=== PATIENT | female | born 1990 | race Caucasian/White ===

== ENCOUNTER 2020-05-30 01:14 | Outpatient (CLI) | payer BC, SELFPAY ==
[2020-05-30 16:58] LABS: HCT 39.6 % (36.0-46.0); HGB 12.9 g/dL (11.2-15.7); MCH 28.9 pg (27.0-33.0); MCHC 32.6 % (32.0-36.0); MCV 88.6 fL (80-95); MPV 9.3 fL (8.0-11.0); Platelet Count 264 10^3/uL (130-400); RBC 4.47 10^6/uL (3.93-5.22); RDW 13.2 % (11.7-14.6); RDW-SD 42.6 fL; WBC 11.13 10^3/uL (4.4-10.8)
== END 2020-05-30 01:34 ==
PROVIDERS: PCP Student in an Organized Health Care Education/Training Program; Visit Provider Student in an Organized Health Care Education/Training Program
DX: D64.9 Anemia, unspecified (principal); R00.0 Tachycardia, unspecified
CPT/HCPCS: 36415; 85027

== ENCOUNTER 2020-12-18 04:18 | Outpatient (CLI) | payer BC, SELFPAY ==
[2020-12-18 20:52] LABS: Anion Gap 9.3 mmol/L (3-11); BUN 11 mg/dL (7-18); CO2 25.7 mmol/L (21.0-32.0); CREATININE 0.9 mg/dL (0.55-1.02); Calcium 9.6 mg/dL (8.5-10.1); Chloride 106 mmol/L (98-107); Glucose 89 mg/dL (74-106); Sodium 141 mmol/L (136-145); TSH (W/Ref FT4) 1.18 uIU/mL (0.36-3.74)
[2020-12-20 12:58] LABS: ANA Interpretation Positive (Negative)
[2020-12-20 17:04] LABS: Whey, IgE <0.35 kU/L
[2020-12-21 11:57] LABS: dsDNA Ab, IgG <12.3 IU/mL (<30.0)
== END 2020-12-18 04:19 | disposition home or self-care (01) ==
LOC: LBO 04:18
PROVIDERS: PCP Student in an Organized Health Care Education/Training Program; Visit Provider Student in an Organized Health Care Education/Training Program
DX: D64.9 Anemia, unspecified (principal); R53.83 Other fatigue; M25.59 Pain in other specified joint; R21 Rash and other nonspecific skin eruption; M35.9 Systemic involvement of connective tissue, unspecified; R63.5 Abnormal weight gain; E46 Unspecified protein-calorie malnutrition; N28.9 Disorder of kidney and ureter, unspecified; Z13.1 Encounter for screening for diabetes mellitus; Z91.018 Allergy to other foods
CPT/HCPCS: 36415; 80048; 84443; 86003; 86038; 86225

== ENCOUNTER 2021-09-14 11:32 | Outpatient (CLI) | payer BC, SELFPAY ==
--- NOTE | 2021-09-14 11:30 | RT.EKG_ITS ---
APPROVED REPORT Exam: Resting ECG Reason for Exam: pre-op examination Patient Location: O HR:65 bpm ECG Measurements Heart Rate 65 AXIS ME 141 P 20 QRSd 92 QRS 15 QT 407 T 2 QTc 423 Conclusion Sinus rhythm...normal P axis, V-rate 60- 99 Normal Electrocardiogram
== END 2021-09-14 11:33 | disposition home or self-care (01) ==
LOC: DI.KIM 11:33
PROVIDERS: PCP Student in an Organized Health Care Education/Training Program; Visit Provider Student in an Organized Health Care Education/Training Program
DX: Z01.818 Encounter for other preprocedural examination (principal)
CPT/HCPCS: 93010

== ENCOUNTER 2021-09-14 21:39 | Outpatient (REF) | payer BC, SELFPAY ==
[2021-09-14 20:50] LABS: HCT 42.9 % (36.0-46.0); HGB 13.9 g/dL (11.2-15.7); MCH 29.4 pg (27.0-33.0); MCHC 32.4 % (32.0-36.0); MCV 90.7 fL (80-95); MPV 9.9 fL (8.0-11.0); Platelet Count 293 10^3/uL (130-400); RBC 4.73 10^6/uL (3.93-5.22); RDW 11.9 % (11.7-14.6); RDW-SD 39.4 fL; WBC 7.45 10^3/uL (4.4-10.8)
[2021-09-14 20:59] LABS: ALT 30 U/L (14-59); AST 17 U/L (15-37); Albumin 4.2 g/dL (3.4-5.0); Alkaline Phosphatase 62 U/L (46-116); Anion Gap 10.2 mmol/L (3-11); BUN 10 mg/dL (7-18); Bilirubin, Total 0.4 mg/dL (0.2-1.0); CO2 25.8 mmol/L (21.0-32.0); CREATININE 0.8 mg/dL (0.55-1.02); Calcium 9.2 mg/dL (8.5-10.1); Chloride 104 mmol/L (98-107); Glucose 87 mg/dL (74-106); Potassium 4.2 mmol/L (3.5-5.1); Sodium 140 mmol/L (136-145); TSH (W/Ref FT4) 0.79 uIU/mL (0.36-3.74); Total Protein 7.3 g/dL (6.4-8.2)
== END 2021-09-14 21:40 | disposition home or self-care (01) ==
LOC: LBN 21:39
PROVIDERS: PCP Student in an Organized Health Care Education/Training Program; Visit Provider Student in an Organized Health Care Education/Training Program
DX: E46 Unspecified protein-calorie malnutrition (principal); E86.0 Dehydration; Z86.79 Personal history of other diseases of the circulatory system; D64.9 Anemia, unspecified; N92.0 Excessive and frequent menstruation with regular cycle
CPT/HCPCS: 80053; 85027; 84443

== ENCOUNTER 2022-11-28 15:59 | Outpatient (REF) | payer OTHER, SELFPAY ==
--- NOTE | 2022-11-28 15:45 | PAPFT_PTH ---
PATIENT: Rafia Guajardo LOC: [facility] U#:[id number] AGE/SX: 32/F ROOM: RE11/28/[address]: Anabell Winslow DO : 1990 BED: DIS: 11/28/2022 SPEC #: [id number] RECD: 11/28/22 16:51 STATUS: JANUSZ REQ #: [id number] JOLENE: 11/28/22 15:[address]: Anabell Winslow DEPT: [facility] Cytology RECD BY: Lauryn Naik ENTERED: 11/28/22 16:51 SP TYPE: PAPFT OTHR DR: Joyce Biggs DO Tissues: 1 - CX/ENDOCX FOR PAP SMEARS Procedures: PAP THIN PREP/UVM Screening HPV DNA PROBE Comments: [id number]
== END 2022-11-28 16:00 | disposition home or self-care (01) ==
LOC: LBN 15:59
PROVIDERS: PCP Student in an Organized Health Care Education/Training Program; Visit Provider Obstetrics & Gynecology
DX: Z12.4 Encounter for screening for malignant neoplasm of cervix (principal); Z11.51 Encounter for screening for human papillomavirus (HPV)
CPT/HCPCS: 88142; 87624

== ENCOUNTER 2023-11-01 04:11 | Emergency (ER) | payer OTHER, SELFPAY ==
[2023-11-01 04:14] VITALS: PULSE 84; RESP 22; TEMP 36.4; O2SAT 99
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
== END 2023-11-01 04:59 | disposition home or self-care (01) ==
PROVIDERS: Emergency Provider Student in an Organized Health Care Education/Training Program; PCP Student in an Organized Health Care Education/Training Program
DX: Z03.823 Encounter for observation for suspected inserted (injected) foreign body ruled out (principal); Z01.419 Encounter for gynecological examination (general) (routine) without abnormal findings
CPT/HCPCS: 99281; 99282

== ENCOUNTER 2023-11-26 05:04 | Outpatient (CLI) | payer OTHER, SELFPAY ==
[2023-11-26 11:08] LABS: ALT 25 U/L (14-59); AST 14 U/L (15-37); Albumin 3.7 g/dL (3.4-5.0); Alkaline Phosphatase 65 U/L (46-116); Anion Gap 13.1 mmol/L (3-11); BUN 13 mg/dL (7-18); Bilirubin, Total 0.4 mg/dL (0.2-1.0); CO2 24.9 mmol/L (21.0-32.0); CREATININE 0.9 mg/dL (0.55-1.02); Calcium 9.1 mg/dL (8.5-10.1); Calculated LDL 161 mg/dL (<100); Chloride 104 mmol/L (98-107); Cholesterol 256 mg/dL (<200); Estimated GFR 87.11 (mL/min/1.73m2); Glucose 99 mg/dL (74-106); HDL Cholesterol 66 mg/dL (40-60); Magnesium 1.9 mg/dL (1.8-2.4); Sodium 142 mmol/L (136-145); TSH (W/Ref FT4) 1.09 uIU/mL (0.36-3.74); Total Protein 7.2 g/dL (6.4-8.2); Triglyceride 146 mg/dL (<150)
== END 2023-11-26 05:05 | disposition home or self-care (01) ==
LOC: LBO 05:04
PROVIDERS: PCP Student in an Organized Health Care Education/Training Program; Visit Provider Student in an Organized Health Care Education/Training Program
DX: Z13.220 Encounter for screening for lipoid disorders (principal); K58.9 Irritable bowel syndrome, unspecified; Z91.018 Allergy to other foods; D64.9 Anemia, unspecified; Z91.89 Other specified personal risk factors, not elsewhere classified
CPT/HCPCS: 36415; 80053; 80061; 83735; 84443

== ENCOUNTER 2024-02-24 12:51 | Outpatient (CLI) | payer OTHER, SELFPAY ==
[2024-02-24 12:56] LABS: Abs Immature Grans 0.03 10^3/uL (0.0-0.06); Absolute Basophil Count 0.03 10^3/uL (0.0-0.2); Absolute Eosinophil Count 0.04 10^3/uL (0.0-0.7); Absolute Lymphocyte Count 2.59 10^3/uL (1.2-3.4); Absolute Monocyte Count 0.35 10^3/uL (0.1-0.8); Absolute Neutrophil Count 6.57 10^3/uL (1.2-6.7); Basophils % 0.3 %; Eosinophils % 0.4 %; HCT 41.1 % (36.0-46.0); HGB 13.4 g/dL (11.2-15.7); Immature Grans % 0.3 %; MCH 29.2 pg (27.0-33.0); MCHC 32.6 % (32.0-36.0); MCV 90 fL (80-95); MPV 8.8 fL (8.0-11.0); Monocytes % 3.6 %; Neutrophils % 68.4 %; Platelet Count 301 10^3/uL (130-400); RBC 4.59 10^6/uL (3.93-5.22); RDW 12.5 % (11.7-14.6); RDW-SD 41.2 fL; WBC 9.61 10^3/uL (4.4-10.8)
[2024-02-24 13:20] LABS: TSH (W/Ref FT4) 1.22 uIU/mL (0.36-3.74)
[2024-02-24 13:22] LABS: HCG Quant, Pregnancy < 1 mIU/mL (1-3)
== END 2024-02-24 12:52 | disposition home or self-care (01) ==
LOC: LBO 12:51
PROVIDERS: PCP Student in an Organized Health Care Education/Training Program; Visit Provider Obstetrics & Gynecology
DX: N93.8 Other specified abnormal uterine and vaginal bleeding (principal)
CPT/HCPCS: 36415; 84443; 84702; 85025

== ENCOUNTER 2024-05-18 08:46 | Outpatient (CLI) | payer OTHER, SELFPAY ==
[2024-05-18 10:31] LABS: ALT 23 U/L (14-59); AST 11 U/L (15-37); Albumin 3.5 g/dL (3.4-5.0); Alkaline Phosphatase 68 U/L (46-116); Anion Gap 9.7 mmol/L (3-11); BUN 14 mg/dL (7-18); Bilirubin, Total 0.35 mg/dL (0.2-1.0); CO2 26.3 mmol/L (21.0-32.0); CREATININE 0.9 mg/dL (0.55-1.02); Calcium 8.8 mg/dL (8.5-10.1); Calculated LDL 137 mg/dL (<100); Chloride 105 mmol/L (98-107); Cholesterol 229 mg/dL (<200); Estimated GFR 86.57 (mL/min/1.73m2); Glucose 101 mg/dL (74-106); HDL Cholesterol 63 mg/dL (40-60); Potassium 4.1 mmol/L (3.5-5.1); Sodium 141 mmol/L (136-145); Triglyceride 146 mg/dL (<150); Vitamin B12 565 pg/mL (193-986); Vitamin D 25 Total 38.6 ng/mL (30-100)
[2024-05-18 10:58] LABS: Folate > 20.0 ng/mL (8.6-20.0)
[2024-05-18 11:19] LABS: Bilirubin, Direct 0.1 mg/dL (0.0-0.2)
== END 2024-05-18 08:47 | disposition home or self-care (01) ==
LOC: LBO 08:46
PROVIDERS: PCP Student in an Organized Health Care Education/Training Program; Visit Provider Student in an Organized Health Care Education/Training Program
DX: Z13.220 Encounter for screening for lipoid disorders (principal); Z91.018 Allergy to other foods; K58.9 Irritable bowel syndrome, unspecified; R63.4 Abnormal weight loss; E63.9 Nutritional deficiency, unspecified; Z86.79 Personal history of other diseases of the circulatory system; Z91.09 Other allergy status, other than to drugs and biological substances; I10 Essential (primary) hypertension; K90.9 Intestinal malabsorption, unspecified
CPT/HCPCS: 36415; 80048; 80061; 80076; 82306; 82607; 82746

== ENCOUNTER 2024-09-23 03:03 | Outpatient (CLI) | payer OTHER, SELFPAY ==
--- NOTE | 2024-09-23 07:30 | DI.US_ITS ---
APPROVED REPORT EXAM: Comprehensive 2D, Doppler, and color-flow Echocardiogram Patient Location: Out-Patient [employer] Technician: Armando Tejeda RDCS (AE) Indications: Dyspnea on exertion Conclusion Normal left ventricular wall thickness and chamber size. Ejection fraction is 60 to 65%. Wall motio n is normal Normal right ventricular size and function Both atria are normal in size There is no structural or hemodynamically significant valvular disease Estimated right ventricular systolic pressure is 22 mmHg Wall motion Left Ventricle The left ventricle is normal size. The left ventricular systolic function is normal. The left ventric ular ejection fraction is within the normal range. Borderline concentric left ventricular hypertrophy . There is normal LV segmental wall motion. There is no ventricular septal defect visualized. LVEF is 60-65%. Right Ventricle The right ventricle is normal size. The right ventricular systolic function is normal. Atria The left atrium size is normal. The right atrium size is normal. The interatrial septum is intact wit h no evidence for an atrial septal defect. Aortic Valve The aortic valve is normal in structure. Aortic valve is trileaflet. There is no aortic valvular sten osis. No aortic regurgitation is present. Mitral Valve The mitral valve is normal in structure. No evidence of mitral valve stenosis. Trivial mitral regurgi tation. Tricuspid Valve The tricuspid valve is normal in structure. There is no tricuspid valve stenosis. Trace tricuspid reg urgitation. The RVSP is 21.6 mmHg. Pulmonic Valve The pulmonary valve is normal in structure. There is no pulmonic valvular stenosis. There is no pulmo devan valvular regurgitation. Great Vessels The aortic root is normal in size. The ascending aorta is normal in size. Aortic arch is normal in ca liber. IVC is normal in size and collapses >50% with inspiration. Pericardium There is no pericardial effusion. 2D Dimensions IVSD d PLAX 0.97 cm F: 0.6-1.0 Ao Root d 2.98 cm F: 2.7 - 3.3 LVPW d PLAX 0.98 cm F: 0.6 - 1.0 Ao Asc Diam d 2.65 cm F: 2.3 - 3.1 LVID d PLAX 4.97 cm F: 3.8 - 5.2 LVDs 3.39 cm F: 2.2 - 3.5 LV EF Teichholz 59.7 % FS 31.88 % LV EDV (Teich) 116.6 mL LV ESV (Teich) 47.0 mL Stroke Vol Index (Teich) 38.06 M-Mode TAPSE 2.93 cm (M/F) >1.7 Auto EF LV EDV A4C 112.0 mL LV EDV A2C 96.3 mL LV EDV BP 100.9 mL LV ESV A4C 45.0 mL LV ESV A2C 33.6 mL LV ESV BP 38.6 mL LVEF(%) A4C 59.8 % LVEF(%) A2C 65.1 % LVEF(%) BP 61.7 % LV SV A4C 67.0 ml LV SV A2C 62.8 ml LV SV BP 62.3 ml LV CO A4C 4.6 L/min LV CO A2C 5.2 L/min LV CO BP 4.9 L/min HR A4C 68.70 BPM HR A2C 82.57 BPM LV EDV Index (BP) LA Volume LA Length A4C 3.2 cm LA Length A2C 3.8 cm LA Area A4C s 4.96 cm2 LA Area A2C s 6.61 cm2 LA Vol A4C A-L 6.44 mL LA Vol A2C A-L 9.64 mL LA Vol Biplane A-L 8.6 mL LA Vol/BSA A4C A-L LA Vol/BSA A2C A-L LA Vol/BSA BP A-L 4.7 mL/m2 LA Vol A4C MOD 5.8 mL LA Vol A2C MOD 9.4 mL LA Vol BP MOD 8.0 mL RA Volume RA Area A4C 7.5 cm2 RA ESV A4C (A-L) 15.2mL RA Vol/BSA A4C A-L RA Length A4C 3.1 cm RA ESV A4C (MOD) 14.3mL LV Diastology MV E' medial 0.092 (>0.07 m/s) MV E Vmax 0.87 (0.4-1.3 m/s) MV E/E' MED 9.42 (<14) MV A Vmax 0.60 (0.4-1.3 m/s) MV E' lateral 0.090 (>0.1 m/s) E/A Ratio 1.5 MV E/E' LAT 9.66 (<14) MV E' Average 0.091 m/s MV E/E'(average) 9.54 Aortic Valve AoV Vmax 1.15 m/s LVOT Vmax 0.94 m/s AoV Peak Grad 5.3 mmHg LVOT Peak Grad 3.6 mmHg AoV Area (Vmax) 2.69 cm2 LVOT VTI 0.232 m AoV VTI 0.293 m LVOT Mean Grad 2.0 mmHg AoV Mean Robert. 0.86 m/s LVOT SV 76.28 mL AoV Mean Grad 3.2 mmHg LVOT Diam s 2.00 cm AoV Area (VTI) 2.61 cm2 AV Regurg Peak Gr. 5.31 mmHg Velocity Ratio 0.82 Mitral Valve MV DT 152 (160-240 msec) MV Vmax TIPS 0.82 m/s MV Mean Grad 1.1 (<2mmHg) MV VTI 0.237 m Pulmonary Valve PV Vmax 0.94 (0.5-1.5 m/s) RVOT Vmax 0.69 m/s PV Peak Grad 3.6 mmHg RVOT Peak Gr. 1.9 mmHg PV Mean Robert 0.63 m/s RVOT VTI 0.129 m PV Mean Grad 1.8 mmHg RVOT Mean Gr. 1.0 mmHg Tricuspid Valve RA Pressure 3.00 mmHg TR Vmax 2.15 m/s TR Peak Grad 18.5 mmHg RVSP (TR) 21.6 mmHg
== END 2024-09-23 03:23 ==
LOC: DI 03:03
PROVIDERS: PCP Nurse Practitioner; Visit Provider Nurse Practitioner
DX: R06.09 Other forms of dyspnea (principal)
CPT/HCPCS: 93306

== ENCOUNTER 2024-11-03 08:24 | Outpatient (CLI) | payer OTHER, SELFPAY ==
[2024-11-03 09:45] LABS: TSH (W/Ref FT4) 1.29 uIU/mL (0.36-3.74)
[2024-11-04 10:05] LABS: ANA Interpretation Negative (Negative)
[2024-11-08 17:30] LABS: Apolipoprotein B, Serum 109 mg/dL (48-124); Beta VLDL Cholesterol Not Detected mg/dL (<15); Beta VLDL Triglycerides Not Detected mg/dL (<15); Cholesterol, Total, CDC 235 mg/dL; Chylomicron Cholesterol Not Detected; Chylomicron Triglycerides Not Detected; HDL Cholesterol, CDC 58 mg/dL (>=50); LDL Cholesterol 137 mg/dL; LDL Triglycerides 61 mg/dL (<=50); Lp(a) Cholesterol <5 mg/dL (<5); LpX Not detected; Triglycerides, CDC 222 mg/dL; VLDL Cholesterol 40 mg/dL (<30); VLDL Triglycerides 124 mg/dL (<120)
== END 2024-11-03 08:25 | disposition home or self-care (01) ==
LOC: LBO 08:28
PROVIDERS: PCP Nurse Practitioner; Visit Provider Nurse Practitioner
DX: E78.5 Hyperlipidemia, unspecified (principal); R76.8 Other specified abnormal immunological findings in serum; R63.5 Abnormal weight gain
CPT/HCPCS: 36415; 80061; 82172; 82664; 84443; 86038

== ENCOUNTER 2024-11-04 09:44 | Outpatient (RCR) | payer OTHER, SELFPAY ==
--- NOTE | 2024-11-09 09:38 | W.HOLTRPT ---
Date of service: 11/09/24 Time of Service: 09:38 Holter Monitor Report Referring Provider:: Marie Goel Indications:: Palpitations Holter Monitor Note: This is a 48-hour Holter monitor. Rhythm throughout was sinus with an average heart rate of 82. Minimum was 52, maximum 128. A total of 3 premature ventricular contractions and 4 premature atrial contractions were recorded. There was no atrial fibrillation, no high-grade AV block, no pauses second. Reported symptoms correlated to sinus rhythm at 79 bpm
== END 2024-11-22 23:59 | disposition home or self-care (01) ==
LOC: CARDOPNVT 09:44
PROVIDERS: PCP Nurse Practitioner; Visit Provider Internal Medicine Cardiovascular Disease
DX: R00.0 Tachycardia, unspecified (principal); I49.3 Ventricular premature depolarization
CPT/HCPCS: 93225; 93226

== ENCOUNTER 2024-11-16 08:28 | Outpatient (CLI) | payer OTHER, SELFPAY ==
[2024-11-17 09:54] LABS: IgA 151 mg/dL (85-499); IgG 758 mg/dL (610-1616)
[2024-11-17 13:05] LABS: Tissue Transglutaminase IgA <4.0 CU (<20.0)
== END 2024-11-16 08:29 | disposition home or self-care (01) ==
LOC: LBO 08:28
PROVIDERS: PCP Nurse Practitioner; Visit Provider Nurse Practitioner Family
DX: Z91.09 Other allergy status, other than to drugs and biological substances (principal); K59.00 Constipation, unspecified; R14.0 Abdominal distension (gaseous)
CPT/HCPCS: 36415; 82784

== ENCOUNTER 2024-12-14 11:42 | Outpatient (CLI) | payer OTHER, SELFPAY ==
--- NOTE | 2024-12-14 11:30 | RT.EKG_ITS ---
APPROVED REPORT Exam: Resting ECG Reason for Exam: Chest pain Patient Location: O HR:80 bpm ECG Measurements Heart Rate 80 AXIS NV 120 P 19 QRSd 99 QRS 6 QT 398 T -1 QTc 460 Conclusion Sinus rhythm...normal P axis, V-rate 50- 99 Normal Electrocardiogram
== END 2024-12-14 11:43 | disposition home or self-care (01) ==
LOC: DI.KIM 11:42
PROVIDERS: PCP Nurse Practitioner; Visit Provider Nurse Practitioner Family
DX: R07.9 Chest pain, unspecified (principal)
CPT/HCPCS: 93010

== ENCOUNTER 2024-12-23 01:32 | Outpatient (CLI) | payer OTHER, SELFPAY ==
--- NOTE | 2024-12-23 06:03 | ETT_ITS ---
APPROVED REPORT Exam: Exercise Treadmill Patient Location: Out-Patient Room/Bed: Stress Nurse: Karuna Winslow RN Ordering Provider:ROSA CURRY, Contact Number: [phone] BMI: 31.17 Baseline Rhythm: Sinus Rhythm Comment: Occasional PVC's Indications: Chest pain, Medical History Medical History: Family hx of sudden cardiac , palpitations, chest pain, anxiety induced tachyca rdia, familial hyperlipoproteinemia type IIb Cardiac Medications: Aspirin, omeprazole, rosuvastatin Allergies: Yeast Cardiac Risk Factors: Family hx, HLD Previous Cardiac Procedures: None Pretest Chest Pain Characteristics: 11/01 squeezing Exercise History: Physically active Physical Disabilities: None Lung Sounds: Clear to auscultation Heart Sounds: Regular Stress Test Details Test: Exercise stress testing was performed using a Sridhar protocol. Rest Stress HR Resting HR Supine: 79 bpm Max Heart Rate (APMHR): 187 bpm Resting HR Standin bpm Target HR (85% APMHR): 159 bpm Max HR Achieved: 169 bpm % of APMHR: 90 Recovery HR: 87 bpm HR response to stress: Normal HR response to stress BP Resting BP Supine: 144/80 mmHg Resting BP Standin/90 mmHg Max BP: 182/80 mmHg Recovery BP: 150/88 mmHg BP response to stress: Normal blood pressure response to stress. ECG Resting ECG: Sinus Rhythm Ectopy: Occasional PVC's Stress ECG: Sinus Tachycardia ST Change: No significant ST segment changes noted Arrhythmia: Occasional PVC's Recovery ECG: Sinus Rhythm Recovery ST Change: No significant ST segment changes noted Recovery Arrhythmia: Occasional PVC's Clinical Reason for Termination: Target HR Achieved Stress Symptoms: Mild-Mod SOB, 3-4/10 chest ache Exercise duration: 07 min58 sec Highest Stage Reached: Stage 3: 3.4 mph at 14% grade. Exercise capacity: 10.11 METs Angina Score: Non-Limiting Rate Pressure Product: [id number] Stress ECG Conclusion 1. Resting electrocardiogram was normal 2. Patient exercised on the Sridhar protocol and completed workload of 10 METS 3. Normal heart rate and blood pressure response to exercise. The patient achieved 90% of maximal pr edicted heart rate for age 4. There was no electrocardiographic evidence of myocardial ischemia 5. There were no significant dysrhythmias Stress Test Summary STAGE Time (mins) Speed (mph) Grade (%) HR BP SpO2 SYMPTOMS METS Supine 79 144/80 97% 3/10 chest squeezing Standing 85 162/90 1 3 1.7 10 133 Mild SOB 4.5 2 6 2.5 12 154 7 3 9 3.4 14 167 10 1 min recovery 106 172/88 98% 3 min recovery 97 182/80 96% 6 min recovery 87 150/88 Reports chest discomfort is back to baseline. Patient reports palpitations are painful and makes her lose track of her breathing. Symptoms di d appear to correlate with PVC's.
== END 2024-12-23 01:52 ==
PROVIDERS: PCP Nurse Practitioner; Visit Provider Internal Medicine Cardiovascular Disease
DX: R07.9 Chest pain, unspecified (principal)
CPT/HCPCS: 93017

== ENCOUNTER 2025-01-05 08:08 | Outpatient (CLI) | payer OTHER, SELFPAY ==
--- NOTE | 2025-01-05 08:00 | RT.EKG_ITS ---
APPROVED REPORT Exam: Resting ECG Reason for Exam: chest pain Patient Location: O HR:84 bpm ECG Measurements Heart Rate 84 AXIS AR 113 P 24 QRSd 94 QRS -10 QT 390 T -1 QTc 462 Conclusion Sinus rhythm...normal P axis, V-rate 50- 99 Borderline short AR interval...AR int <120mS Otherwise normal ECG
== END 2025-01-05 08:09 | disposition home or self-care (01) ==
LOC: DI.CARD 08:09
PROVIDERS: PCP Nurse Practitioner; Visit Provider Registered Nurse
DX: R07.9 Chest pain, unspecified (principal); Z86.79 Personal history of other diseases of the circulatory system
CPT/HCPCS: 93010

== ENCOUNTER 2025-01-31 13:27 | Outpatient (CLI) | payer OTHER, SELFPAY ==
[2025-02-03 16:01] LABS: Antinuclear Ab 2.7 U; Cyclic Citrullinated Peptide <15.6 U
== END 2025-01-31 13:28 | disposition home or self-care (01) ==
LOC: LBO 13:28
PROVIDERS: PCP Nurse Practitioner; Visit Provider Nurse Practitioner Family
DX: I73.00 Raynaud's syndrome without gangrene (principal)
CPT/HCPCS: 36415; 86038; 86200

== ENCOUNTER 2025-03-07 13:19 | Outpatient (CLI) | payer OTHER, SELFPAY | END 2025-03-07 13:20 | disposition home or self-care (01) | LOC: LBO 13:28 | PROVIDERS: PCP Nurse Practitioner; Visit Provider Nurse Practitioner Family | DX: I73.00 Raynaud's syndrome without gangrene (principal) | CPT/HCPCS: 36415; 86039 ==